=== PATIENT | male | born 1980 | race Two or more races ===

== ENCOUNTER → 2019-09-29 | Emergency (ER) | payer OTHER ==
[~2019-09-29] VITALS: Ht 185.4 cm; Wt 131.5 kg
[~2019-09-29] MED LIST: CLINDAMYCIN HCL 150 MG CAP PO ONE; TETANUS-DIPTH-ACEL PERTUSSIS 0.5ML SYR Tdap IM ONE
[2019-09-29 18:27] LABS: Basophils # (auto) 0.1 10 ^3/uL (0-0.2); Basophils % (auto) 0.6 % (0.0-2.0); Eosinophils # (auto) 0.1 10 ^3/uL (0-0.8); Eosinophils % (auto) 1.3 % (0.0-7.0); Hematocrit 49.3 % (41.0-53.0); Hemoglobin 16.4 g/dL (13.5-17.5); Lymphocytes # (auto) 1.4 10 ^3/uL (0.4-5.4); Lymphocytes % (auto) 14.7 % (10.0-50.0); Mean Corpuscular Hemoglobin 30.4 pg (28.0-32.0); Mean Corpuscular Hgb Conc. 33.4 g/dL (32.0-36.0); Mean Corpuscular Volume 91.3 fL (80.0-100.0); Monocytes # (auto) 0.6 10 ^3/uL (0-1.3); Monocytes % (auto) 6.5 % (0.0-12.0); Neutrophils # (auto) 7.2 10 ^3/uL (1.6-8.6); Neutrophils % (auto) 76.9 % (37.0-80.0); Nucleated Red Blood Cells % 0.1 %; Platelet Count (auto) 231 10^3/uL (140-450); Red Cell Distribution Width 14.1 % (11.8-14.3); White Blood Cell 9.3 10^3/uL (4.4-10.8)
[2019-09-29 18:39] LABS: INR 1.02 (0.9-1.15)
[2019-09-29 18:42] LABS: Albumin 3.2 g/dL (3.4-5.0); BUN/Creatinine Ratio 21.2; Calcium 8.6 mg/dL (8.5-10.1); Potassium 3.9 mmol/L (3.5-5.1)
[2019-09-29 18:44] LABS: Bilirubin, Total 1.2 mg/dL (0.2-1.0); Total Protein 8.2 g/dL (6.4-8.2)
[2019-09-29 19:28] VITALS: BP 144/70
== END | disposition home or self-care (01) ==
LOC: ER 17:12
DX: T81.49XA Infection following a procedure, other surgical site, initial encounter (principal); L03.116 Cellulitis of left lower limb
CPT/HCPCS: 36415; 73560; 80053; 83605; 85025; 85610; 87040; 87077; 87186; 87205; 90471; 90715

== ENCOUNTER 2020-01-13 16:03 | Emergency (ER) | payer OTHER ==
[~2020-01-13] VITALS: Ht 185.4 cm; Wt 135.2 kg
[2020-01-13 18:15] VITALS: BP 132/86
== END 2020-01-13 18:22 | disposition home or self-care (01) ==
LOC: ER 16:03
DX: J18.9 Pneumonia, unspecified organism (principal); Z20.828 Contact with and (suspected) exposure to other viral communicable diseases
CPT/HCPCS: 36415; 71045; 87426; 99284; C9803; U0003

== ENCOUNTER 2021-01-17 16:14 | Emergency (ER) | payer MEDICAID ==
[~2021-01-17] VITALS: Ht 185.4 cm; Wt 138.3 kg
[2021-01-17 19:04] VITALS: BP 125/77
[2021-01-17] MEDS ORDERED: KETOROLAC TROMETH 60MG/2ML VIAL IM ONE (19:30)
[2021-01-17] MEDS ORDERED: methylPREDNISolone SOD SUCC 125 MG/2 ML VL IM ONE (19:30)
== END 2021-01-17 20:14 | disposition home or self-care (01) ==
LOC: ER 16:29
DX: M79.672 Pain in left foot (principal); R22.42 Localized swelling, mass and lump, left lower limb; E66.9 Obesity, unspecified; Z68.41 Body mass index [BMI] 40.0-44.9, adult; I10 Essential (primary) hypertension; I25.2 Old myocardial infarction; E78.5 Hyperlipidemia, unspecified
CPT/HCPCS: 93971; 96372; 99284; J1885; J2930

== ENCOUNTER 2021-03-28 07:20 | Emergency (ER) | payer MEDICAID, OTHER ==
[~2021-03-28] VITALS: Ht 185.4 cm; Wt 136.1 kg
[2021-03-28 08:18] VITALS: BP 140/69
[2021-03-28] MEDS ORDERED: IBUPROFEN 800 MG TAB PO ONE (08:30)
== END 2021-03-28 11:57 | disposition home or self-care (01) ==
LOC: ER 07:20
DX: S16.1XXA Strain of muscle, fascia and tendon at neck level, initial encounter (principal); S39.012A Strain of muscle, fascia and tendon of lower back, initial encounter; S46.912A Strain of unspecified muscle, fascia and tendon at shoulder and upper arm level, left arm, initial encounter; S29.012A Strain of muscle and tendon of back wall of thorax, initial encounter; I10 Essential (primary) hypertension; I25.2 Old myocardial infarction; E11.9 Type 2 diabetes mellitus without complications; E78.5 Hyperlipidemia, unspecified; V43.52XA Car driver injured in collision with other type car in traffic accident, initial encounter; Y93.89 Activity, other specified; Y92.410 Unspecified street and highway as the place of occurrence of the external cause; Y99.8 Other external cause status
CPT/HCPCS: 72070; 72100; 72125; 73030

== ENCOUNTER 2021-07-03 15:31 | Emergency (ER) | payer MEDICAID ==
[~2021-07-03] VITALS: Ht 185.4 cm; Wt 136.1 kg
[2021-07-03] MEDS ORDERED: BENZ100C97 PO (17:14)
[2021-07-03] MEDS ORDERED: PRED10TA PO (17:14)
[2021-07-03] MEDS ORDERED: AMOX500C2 PO (17:14)
[2021-07-03] MEDS ORDERED: cefTRIAXone SOD 1,000 MG VL IM ONE (17:15)
[2021-07-03] MEDS ORDERED: DexAMETHasone SOD PHOS 10MG/1ML VIAL INJ IM ONE (17:15)
[2021-07-03 17:41] VITALS: BP 132/70
[2021-07-03] MEDS ORDERED: LIDOCAINE 1% HCL (LOCAL ANESTH.) INJ 20ML MDV ONE (17:48)
== END 2021-07-03 18:50 | disposition home or self-care (01) ==
LOC: ER 15:31
DX: J02.9 Acute pharyngitis, unspecified (principal); J06.9 Acute upper respiratory infection, unspecified; I10 Essential (primary) hypertension; I25.2 Old myocardial infarction; E11.9 Type 2 diabetes mellitus without complications; E78.5 Hyperlipidemia, unspecified; Z20.822 Contact with and (suspected) exposure to COVID-19
CPT/HCPCS: 36415; 71045; 87426; 96372; 99284; J0696; J1100; J2001

== ENCOUNTER 2021-11-26 00:03 | Emergency (ER) | payer MEDICAID ==
[~2021-11-26] VITALS: Ht 185.4 cm; Wt 154.2 kg
[2021-11-26 00:03] VITALS: BP 130/83
[~2021-11-26 00:03] MED LIST changes: +AMOX500C2 PO; +BENZ100C97 PO; -CLINDAMYCIN HCL 150 MG CAP PO ONE; +PRED10TA PO; -TETANUS-DIPTH-ACEL PERTUSSIS 0.5ML SYR Tdap IM ONE
== END 2021-11-26 03:24 | disposition left against medical advice (07) ==
LOC: ER 00:03
DX: M25.562 Pain in left knee (principal); M25.552 Pain in left hip; Z53.21 Procedure and treatment not carried out due to patient leaving prior to being seen by health care provider; W19.XXXA Unspecified fall, initial encounter; Y93.89 Activity, other specified; Y92.89 Other specified places as the place of occurrence of the external cause; Y99.8 Other external cause status

== ENCOUNTER 2023-11-06 23:25 | Emergency (ER) | payer SELFPAY ==
[~2023-11-06] VITALS: Ht 185.4 cm; Wt 154.5 kg
[2023-11-06 23:43] VITALS: BP 152/93; PULSE 65; RESP 17; O2SAT 97
[2023-11-07 00:56] LABS: Urine Bacteria None Seen /hpf (None Seen)
[2023-11-07 01:16] LABS: Urine Blood 2+ /uL (Negative); Urine Clarity Clear (Clear); Urine Color Yellow (Yellow); Urine Mucus FEW (None Seen); Urine Protein, UAD Negative (Negative); Urine Specific Gravity 1.024 (1.001-1.035); Urine Urobilinogen 8 mg/dL (Negative); Urine WBC 8 /hpf (0 - 3)
[2023-11-07 02:13] LABS: Basophils # (auto) 0.1 10 ^3/uL (0-0.2); Basophils % (auto) 0.9 % (0.0-2.0); Eosinophils # (auto) 0.3 10 ^3/uL (0-0.8); Eosinophils % (auto) 2.8 % (0.0-7.0); Hematocrit 47.3 % (41.0-53.0); Hemoglobin 16.2 g/dL (13.5-17.5); Lymphocytes # (auto) 2.5 10 ^3/uL (0.4-5.4); Lymphocytes % (auto) 24.1 % (10.0-50.0); Mean Corpuscular Hgb Conc. 34.3 g/dL (32.0-36.0); Mean Corpuscular Volume 87.3 fL (80.0-100.0); Monocytes # (auto) 0.7 10 ^3/uL (0-1.3); Monocytes % (auto) 6.2 % (0.0-12.0); Neutrophils # (auto) 6.9 10 ^3/uL (1.6-8.6); Nucleated Red Blood Cells % 0.1 %; Red Blood Cells 5.42 10^6/uL (4.5-5.90); Red Cell Distribution Width 13.9 % (11.8-14.3); White Blood Cell 10.4 10^3/uL (4.4-10.8)
[2023-11-07 02:15] LABS: Chloride 106 mmol/L (98-107); Potassium 4.3 mmol/L (3.5-5.1); Sodium 138 mmol/L (136-145)
[2023-11-07 02:16] LABS: Anion Gap 4 (5-15); Calcium 9.9 mg/dL (8.7-10.4); Carbon Dioxide 28 mmol/L (20-30)
[2023-11-07 02:21] LABS: BUN/Creatinine Ratio 10.9 (10.0-20.0); Blood Urea Nitrogen 10 mg/dL (9-23); Glucose 110 mg/dL (74-106)
[2023-11-07 02:28] LABS: INR 1.03 (0.9-1.15); Partial Thromboplastin Time 27.9 SEC (24.5-34.5); Prothrombin Time 10.9 sec (9.3-11.8)
[2023-11-07] MEDS ORDERED: CIPR500T4 PO (05:11)
== END 2023-11-07 05:32 | disposition home or self-care (01) ==
LOC: ER 23:25
DX: R31.9 Hematuria, unspecified (principal); N39.0 Urinary tract infection, site not specified; E11.9 Type 2 diabetes mellitus without complications; E78.5 Hyperlipidemia, unspecified; I10 Essential (primary) hypertension; Z98.890 Other specified postprocedural states; Z79.52 Long term (current) use of systemic steroids
CPT/HCPCS: 36415; 74176; 80048; 81001; 85025; 85610; 85730